=== PATIENT | male | born 1940 | race Caucasian/White ===

== ENCOUNTER → 2019-06-29 | Outpatient (CLI) | payer MEDICARE ==
[2019-06-29 08:01] LABS: HEMATOCRIT 48.5 % (42.0-52.0); HEMOGLOBIN 15.5 g/dL (13.5-18.0); MEAN PLATELET VOLUME 9.6 fl (7.4-10.4); RED BLOOD COUNT 5.53 M/mm3 (4.20-5.60); RED CELL DISTRIBUTION WIDTH 14.1 % (11.5-14.5); WHITE BLOOD COUNT 6.6 K/mm3 (4.8-10.8)
[2019-06-29 08:05] LABS: POTASSIUM 4.5 mmol/L (3.5-5.1)
[2019-06-29 08:06] LABS: CALCIUM 10.3 mg/dL (8.3-10.5)
[2019-06-29 08:07] LABS: TOTAL PROTEIN 7.1 g/dL (6.2-8.1)
[2019-06-29 08:09] LABS: TOTAL BILIRUBIN 0.7 mg/dL (0.2-1.2)
== END ==
LOC: LAB 07:43
PROVIDERS: Family Medicine
DX: M19.90 Unspecified osteoarthritis, unspecified site (principal); I10 Essential (primary) hypertension

== ENCOUNTER → 2020-11-20 | Outpatient (CLI) | payer MEDICARE ==
[2020-11-20 08:00] LABS: POTASSIUM 4.3 mmol/L (3.5-5.1)
[2020-11-20 08:01] LABS: ALBUMIN 4.2 g/dL (3.4-4.8)
[2020-11-20 08:02] LABS: CALCIUM 9.2 mg/dL (8.3-10.5)
[2020-11-20 08:03] LABS: TOTAL PROTEIN 7.3 g/dL (6.2-8.1)
== END ==
LOC: LAB 07:28
PROVIDERS: Family Medicine
DX: I10 Essential (primary) hypertension (principal)

== ENCOUNTER → 2021-07-11 | Outpatient (CLI) | payer MEDICARE | LOC: RAD 08:20 → MAMMO 09:00 | DX: Z13.820 Encounter for screening for osteoporosis (principal); M85.88 Other specified disorders of bone density and structure, other site ==

== ENCOUNTER 2023-11-15 08:15 | Emergency (ER) | payer MEDICARE ==
[2023-11-15] MEDS ORDERED: CELEXA 20MG20 MG/TA1 PO (09:02)
[2023-11-15] MEDS ORDERED: LOSARTAN POTASS1 TA1 PO (09:02)
[2023-11-15 09:15] LABS: BASO # 0.01 K/mm3 (0.02-0.10); EOS # 0.03 K/mm3 (0.04-0.40); EOS % 0.5 % (0.0-4.0); HEMATOCRIT 46.5 % (42.0-52.0); HEMOGLOBIN 15.1 g/dL (13.5-18.0); LYMPH# 1.13 K/mm3 (1.50-4.00); MEAN CELL VOLUME 87 fl (78-100); MEAN CORPUSCULAR HEMOGLOBIN 28 pg (27-31); MEAN CORPUSCULAR HGB CONC 33 g/dL (33-37); MEAN PLATELET VOLUME 9.4 fl (7.4-10.4); MONO # 0.43 K/mm3 (0.20-0.80); NEU # 4.15 K/mm3 (1.40-6.50); PLATELET COUNT 227 K/mm3 (130-400); RED BLOOD COUNT 5.35 M/mm3 (4.20-5.60); RED CELL DISTRIBUTION WIDTH 12.9 % (11.5-14.5); WHITE BLOOD COUNT 5.8 K/mm3 (4.8-10.8)
[2023-11-15 09:20] LABS: CALCIUM 9.6 mg/dL (8.3-10.5)
[2023-11-15 09:21] LABS: TOTAL PROTEIN 6.9 g/dL (6.2-8.1)
[2023-11-15 09:23] LABS: TOTAL BILIRUBIN 1.3 mg/dL (0.2-1.2)
[2023-11-15 09:58] LABS: PH-URINE 6.5 (5.0 - 8.0); URINE APPEARANCE CLEAR (CLEAR); URINE BILIRUBIN NEGATIVE (NEGATIVE); URINE BLOOD TRACE (NEGATIVE); URINE COLOR YELLOW (YELLOW); URINE GLUCOSE NEGATIVE (NEGATIVE); URINE KETONE NEGATIVE (NEGATIVE); URINE LEUKOCYTE ESTERASE NEGATIVE (NEGATIVE); URINE NITRATE NEGATIVE (NEGATIVE); URINE PROTEIN(semi-quant) TRACE (NEGATIVE)
[2023-11-15 09:59] LABS: URINE MUCUS PRESENT (NOT PRESENT)
[2023-11-15] MEDS ORDERED: Ketorolac 30 MG/ML VIAL IV ONE (10:00)
[2023-11-15] MEDS ORDERED: Iohexol 300 - 10 ML VIAL IV ONE (10:19)
[2023-11-15] MEDS ORDERED: CYCLOBENZ5 MG PO (10:59)
[2023-11-15 11:07] VITALS: BP 165/85
== END 2023-11-15 11:07 | disposition home or self-care (01) ==
LOC: ED 08:15
PROVIDERS: Physician Assistant
DX: N20.0 Calculus of kidney (principal)
CPT/HCPCS: J1885; Q9967

== ENCOUNTER 2023-11-19 07:16 | Emergency (ER) | payer MEDICARE ==
[~2023-11-19] VITALS: Ht 170.2 cm; Wt 100.5 kg
[~2023-11-19 07:16] MED LIST: CELEXA 20MG20 MG/TA1 PO; CYCLOBENZ5 MG PO; LOSARTAN POTASS1 TA1 PO
[2023-11-19 07:39] LABS: BASO # 0.01 K/mm3 (0.02-0.10); EOS # 0.07 K/mm3 (0.04-0.40); HEMATOCRIT 51.2 % (42.0-52.0); HEMOGLOBIN 16.5 g/dL (13.5-18.0); LYMPH# 1.07 K/mm3 (1.50-4.00); MEAN CELL VOLUME 87 fl (78-100); MEAN CORPUSCULAR HEMOGLOBIN 28 pg (27-31); MEAN CORPUSCULAR HGB CONC 32 g/dL (33-37); MEAN PLATELET VOLUME 8.9 fl (7.4-10.4); MONO # 0.56 K/mm3 (0.20-0.80); NEU # 5.54 K/mm3 (1.40-6.50); PLATELET COUNT 241 K/mm3 (130-400); RED BLOOD COUNT 5.87 M/mm3 (4.20-5.60); RED CELL DISTRIBUTION WIDTH 12.8 % (11.5-14.5); WHITE BLOOD COUNT 7.3 K/mm3 (4.8-10.8)
[2023-11-19 07:43] LABS: ALBUMIN 4.4 g/dL (3.4-4.8)
[2023-11-19 07:45] LABS: CALCIUM 9.9 mg/dL (8.3-10.5)
[2023-11-19 07:46] LABS: TOTAL PROTEIN 7.6 g/dL (6.2-8.1)
[2023-11-19 07:48] LABS: TOTAL BILIRUBIN 1.8 mg/dL (0.2-1.2)
[2023-11-19] MEDS ORDERED: Polyethylene Glycol 3350 Powder 17 GM PACKET PO ONE (08:45)
[2023-11-19] MEDS ORDERED: MIRALAX119 GM PO (08:50)
[2023-11-19] MEDS ORDERED: FLOMAX0.4 MG PO (08:50)
[2023-11-19 10:24] VITALS: BP 128/79
== END 2023-11-19 10:30 | disposition home or self-care (01) ==
LOC: ED 07:16
PROVIDERS: Family Medicine
DX: K59.00 Constipation, unspecified (principal); N20.0 Calculus of kidney; E86.0 Dehydration
CPT/HCPCS: J7120